=== PATIENT | male | born 1965 | race Caucasian/White ===

== ENCOUNTER 2025-02-15 06:14 | Day surgery (SDC) | payer BC, SELFPAY ==
[2025-02-15] MEDS: ALCAINE 0.5% EYE DROPS 1 DROP OPHTH (07:40)
[2025-02-15] MEDS: POLYTRIM OPHTHALMIC SOLUTION 1 DROP OPHTH (07:40)
[2025-02-15] MEDS: MYDRIACYL 1 DROP OPHTH (07:40)
[2025-02-15] MEDS: AKTEN OPHTHALMIC GEL 1 ML OPHTH (07:41)
[2025-02-15] MEDS: NEO-SYNEPHRINE 2.5% OPH SOL. 1 DROP OPHTH (07:41)
[2025-02-15] MEDS: PRED FORTE 1% EYE DROPS 1 DROP OPHTH (07:41)
[2025-02-15] MEDS: CYCLOGYL 1% EYE DROPS 1 DROP OPHTH (07:41)
[2025-02-15 07:50] VITALS: BMI 35.0
[2025-02-15 07:51] VITALS: BP 132/80; BMI 35.0
[2025-02-15] MEDS: NORMOSOL-R/PLASMALYTE-A 1000 IV (07:55)
[2025-02-15 09:45] VITALS: BP 154/85
== END 2025-02-15 10:04 | disposition home or self-care (01) ==
LOC: SDS 06:14
PROVIDERS: ATTENDING PHYSICIAN Ophthalmology
DX: H25.11 Age-related nuclear cataract, right eye (principal)
CPT/HCPCS: 66984

== ENCOUNTER 2025-03-01 06:24 | Day surgery (SDC) | payer BC, SELFPAY ==
[2025-03-01 06:52] VITALS: BMI 35.0
[2025-03-01 06:53] VITALS: BMI 35.0
[2025-03-01 06:54] VITALS: BP 151/86
[2025-03-01] MEDS: ALCAINE 0.5% EYE DROPS 1 DROP OPHTH (07:03)
[2025-03-01] MEDS: NEO-SYNEPHRINE 2.5% OPH SOL. 1 DROP OPHTH (07:04)
[2025-03-01] MEDS: PRED FORTE 1% EYE DROPS 1 DROP OPHTH (07:04)
[2025-03-01] MEDS: CYCLOGYL 1% EYE DROPS 1 DROP OPHTH (07:04)
[2025-03-01] MEDS: NORMOSOL-R/PLASMALYTE-A 1000 IV (07:05)
[2025-03-01] MEDS: MYDRIACYL 1 DROP OPHTH (07:05)
[2025-03-01] MEDS: AKTEN OPHTHALMIC GEL 1 ML OPHTH (07:05)
[2025-03-01] MEDS: POLYTRIM OPHTHALMIC SOLUTION 1 DROP OPHTH (07:05)
[2025-03-01 08:30] VITALS: BP 130/80
== END 2025-03-01 08:41 | disposition home or self-care (01) ==
LOC: SDS 06:24
PROVIDERS: ATTENDING PHYSICIAN Ophthalmology
DX: H25.12 Age-related nuclear cataract, left eye (principal)
CPT/HCPCS: 66984